=== PATIENT | male | born 1985 | race Caucasian/White ===

== ENCOUNTER 2016-06-02 15:18 | Emergency (ER) | payer OTHER, SELFPAY ==
[~2016-06-02] VITALS: Ht 180.3 cm; Wt 74.8 kg
[2016-06-02] MEDS ORDERED: ZANTTAB9 PO (15:25)
[2016-06-02 18:21] VITALS: BP 122/74
[2016-06-02] MEDS ORDERED: CIPR500T89 PO (18:25)
[2016-06-02] MEDS ORDERED: CIPROFLOXACIN 500 MG TAB PO ONE (18:30)
--- NOTE | 2016-06-03 08:46 | REP ---
SCROTAL ULTRASOUND: 06/02/2016 CLINICAL HISTORY: Left testicular pain. FINDINGS: There are no prior studies. The right testis is 4.7 x 2.1 x 3.4 cm. The left testis measures 4.8 x 2.4 x 3.3 cm. Epididymal head size on the right 12.1 mm and the left 10.1 mm. Doppler tracing shows resistive index of 0.45 on the right and 0.56 on the left. No torsion. Currently. There is no cyst in epididymal head on the right. There appears to be a small epididymal head cyst on the left. This about 2 mm. On the one-view it is almost tubular in appearance. The color images show blood flow throughout the right testis in a homogeneous pattern. Left testis shows a posterior peripheral curvilinear zone of hypoechogenicity. On Doppler in this region, there is less color flow than elsewhere. This may be a postischemic change. There is slight heterogeneity to that left testis therefore. I could not exclude that this is a mass. There are a few echogenic foci of testicular microlithiasis on the left. Trace amount of fluid around the left epididymal head and small amount of fluid around the right testis. I see no varicocele. IMPRESSION: 1. Curvilinear zone of hypo echogenicity in the left testis with less color flow than the other segments. This may be post ischemic area after torsion or from congested venous drainage due to venous outflow issue in that testis. 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 This is only on the left side. The right testis was unremarkable. Both show blood flow with normal resistive index. 2. A tiny cyst left epididymal head and small amount of fluid about the left epididymis as well as the right epididymal head and small amount of fluid around the right testis. Careful follow-up and urologic referral recommended. Signed by Jaswant Tabor MD 06/03/2016 09:17 A
--- NOTE | 2016-06-05 21:13 | ED PDOC ---
Post-Departure Follow-Up dr helton faxed formal report of scrotal us for fu Zechariah Desai MD Jun 05, 2016 21:13
== END 2016-06-02 18:41 | disposition home or self-care (01) ==
LOC: M ED 16:57
DX: N45.1 Epididymitis (principal); N39.0 Urinary tract infection, site not specified; F17.200 Nicotine dependence, unspecified, uncomplicated

== ENCOUNTER → 2021-12-26 | Outpatient (REF) | payer OTHER ==
[~2021-12-26] MED LIST: CIPR-249 PO; ZANTTAB9 PO
== END ==
LOC: M LAB REF 16:43
PROVIDERS: ATTEND Physician Assistant
DX: R30.0 Dysuria (principal)

== ENCOUNTER 2024-01-01 16:24 | Emergency (ER) | payer OTHER ==
[~2024-01-01] VITALS: Ht 180.3 cm; Wt 82.3 kg
[2024-01-01] MEDS: FLUORESCEIN OPHTH 1MG STRIP OD ONE (18:34)
[2024-01-01] MEDS: TETRACAINE 0.5% OPHTH SOLN 4ML OD ONE (18:35)
[2024-01-01] MEDS ORDERED: ERYT5OIN25 OD (18:47)
[2024-01-01 18:52] VITALS: BP 133/86; TEMP 97.9; O2SAT 100
[2024-01-01] MEDS: ERYTHROMYCIN OPHTH OINT OD ONE (18:53)
== END 2024-01-01 18:57 | disposition home or self-care (01) ==
LOC: M ED 16:24
DX: S05.01XA Injury of conjunctiva and corneal abrasion without foreign body, right eye, initial encounter (principal); Y92.9 Unspecified place or not applicable; Y93.9 Activity, unspecified; Y99.9 Unspecified external cause status; K21.9 Gastro-esophageal reflux disease without esophagitis; Z79.2 Long term (current) use of antibiotics